=== PATIENT | male | born 1985 | race African-American/Black ===

== ENCOUNTER 2016-11-25 13:30 | Emergency (ER) | payer OTHER ==
[2016-11-25 13:47] VITALS: BP 128/72
--- NOTE | 2016-11-25 14:03 | ED Physician Documentation ---
Upper Extremity Injury - HISTORIAN Historian: patient - HPI Stated Complaint: right little finger pain Chief Complaint: Upper Extremity Injury Onset: other (4 weeks ago) Where: home Severity: moderate Duration: worse Further Comments: yes (31 year old male patient presents with right 5th digit pain, states he injury the finger 4 weeks ago and has not been able straighten the right 5th digit.) - ROS CONST: no problems CVS/RESP: none NEURO: none MS/SKIN/LYMPH: none GI/: denies: nausea, vomiting - PAST HX Past History: Rt handed Allergies/Adverse Reactions: Allergies Allergy/AdvReac Type Severity Reaction Status Date / Time No Known Allergies Allergy Verified 04/01/16 02:18 Home Medications: Ambulatory Orders Medication Instructions Recorded NK [NK] 11/25/16 - SOCIAL HX Smoking History: cigarettes - FAMILY HX Family History: denies: none - VITAL SIGNS Vital Signs: Vital Signs Temp Pulse Resp BP Pulse Ox 99.4 F 78 20 128/72 99 11/25/16 14:42 11/25/16 14:42 11/25/16 14:42 11/25/16 13:31 11/25/16 14:42 - REVIEWED ASSESSMENTS Nursing Assessment Reviewed: Yes Vitals Reviewed: Yes Progress - Progress Progress: Reviewed xray finding with patient. Encouraged follow up with orthopedics. ED Results Lab/Radiology - Radiology Radiology Impressions: Right 5th digit Clinical history: Pain Technique AP lateral oblique Findings: There is a avulsion fracture from the distal phalanx of the 5th digit at the DiP joint. The flexion deformity is present at the pip joint. No other fractures or lytic lesions are seen. Impression: Flexion deformity of the ip joint Avulsion fracture from the base of the dorsal distal phalanx of the 5th digit thumb - Orders Orders: ED Orders Category Date Time Status Finger Splint 1T Care 11/25/16 13:59 Active FINGER 2 VIEWS OR MORE [RAD] Stat Exams 11/25/16 Taken Ketorolac Tromethamine [Toradol] Med 11/25/16 14:05 Discontinued 60 mg IM NOW ONE Upper Extremity Injury Physic - Physical Exam General Appearance: mild distress Hand: non-tender, normal ROM, deformity (right 5th digit with flexion of DIP joint, patient unable to extend, C/O pain with palpation and extension. ) Wrist: normal inspection, non-tender, no evidence of injury, normal ROM Neuro/Vascular/Tendon: no vascular compromise, motor nml, sensation nml Skin: warm,dry Resp/CVS: chest non-tender, breath sounds nml, heart sounds nml, no resp. distress, lungs clear, reg. rate & rhythm Discharge Clincal Impression: Mallet finger of right hand Avulsion fracture of distal phalanx of finger Qualifiers: Encounter type: initial encounter Fracture type: closed Qualified Code(s): S62.639A - Displaced fracture of distal phalanx of unspecified finger, initial encounter for closed fracture Referrals: Primary Doctor,No [Primary Care Provider] - 2 Days Additional Instructions: Wear splint at all times for the next 6-8 weeks. May remove twice a day to shower and access skin. Splint should be worn while sleeping. Follow up with orthopedics Tylenol or ibuprofen as needed for pain. Home Medications: Ambulatory Orders NK [NK] 11/25/16 Condition: Stable Disposition: 01 HOME, SELF-CARE Decision to Admit: NO Decision Time: 14:02
[2016-11-25] MEDS ORDERED: KETOROLAC TROMETHAMINE 60 MG/2 ML VIAL IM ONE (14:05)
--- NOTE | 2016-11-25 21:21 | Diagnostic Imaging Report ---
EVELIA SPEAR (WENDY) - ER [facility] [address] [id number] Report Submission Date: Nov 25, 2016 2:11:19 PM CDT Patient Study Name: BLANE BARTON Date: Nov 25, 2016 1:38:26 PM CDT Modality Type: CR Gender: M Description: UPPER EXTREMITY : 87 Institution: [facility] Physician: EVELIA SPEAR) - ER Right 5th digit Clinical history: Pain Technique AP lateral oblique Findings: There is a avulsion fracture from the distal phalanx of the 5th digit at the DiP joint. The flexion deformity is present at the pip joint. No other fractures or lytic lesions are seen. Impression: Flexion deformity of the ip joint Avulsion fracture from the base of the dorsal distal phalanx of the 5th digit thumb Electronically signed on Nov 25, 2016 2:11:19 PM CDT by: Elmer ROLLE
== END 2016-11-25 14:32 | disposition home or self-care (01) ==
LOC: ED 13:30
DX: S62.639A Displaced fracture of distal phalanx of unspecified finger, initial encounter for closed fracture (principal); X58.XXXA Exposure to other specified factors, initial encounter; Y93.9 Activity, unspecified; Y99.9 Unspecified external cause status; M20.011 Mallet finger of right finger(s)
CPT/HCPCS: 73140; J1885; 96372; 99283

== ENCOUNTER 2017-08-24 09:57 | Emergency (ER) | payer OTHER ==
[2017-08-24 10:14] VITALS: BP 130/80
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
== END 2017-08-24 10:45 | disposition home or self-care (01) ==
LOC: ED 09:57
DX: M79.602 Pain in left arm (principal)
CPT/HCPCS: 99282

== ENCOUNTER 2018-04-19 13:38 | Emergency (ER) | payer OTHER ==
[2018-04-19 13:53] VITALS: BP 130/77
--- NOTE | 2018-04-19 14:01 | ED Physician Documentation ---
Sore Throat/Dental Pain - HISTORIAN Historian: patient - HPI Stated Complaint: Dental pain Chief Complaint: Dental Pain Additional Information: lt lower post dendtal painw/surroundin g hteazshd-thadnrwf-kqaqhlozwhyhq tenderness Onset: days ago (3 d progressive) Context: Abscess, Dental Caries, Other (pt has several gold teeth) Associated Symptoms: denies: fever, chills, sore throat Worsened By: heat, cold, nothing - ROS CONST: no problems. denies: recent illness CVS/RESP: none GI/: denies: problems urinating, nausea, vomiting NEURO/PSYCH: none - PAST HX Past History: none Allergies/Adverse Reactions: Allergies Allergy/AdvReac Type Severity Reaction Status Date / Time No Known Allergies Allergy Verified 04/19/18 13:53 Home Medications: Ambulatory Orders Medication Instructions Recorded NK 04/19/18 - SOCIAL HX Smoking History: cigarettes Alcohol Use: none Drug Use: none - FAMILY HX Family History: No - VITAL SIGNS Vital Signs: Vital Signs Temp Pulse Resp BP Pulse Ox 101 H 15 130/77 99 04/19/18 13:45 04/19/18 13:45 04/19/18 13:45 04/19/18 13:45 - REVIEWED ASSESSMENTS Nursing Assessment Reviewed: Yes Vitals Reviewed: Yes Dental Pain Physical Exam - EXAM General Appearance: mild distress, moderate distress Head/Neck: head nml inspection, maxillary swelling (L) Eyes: eyes nml inspection Mouth/Throat: lips nml, pharynx nml, voice nml. No: gums nml Ear/Nose: nml inspection Respiratory: no resp. distress, breath sounds nml CVS: reg. rate & rhythm, heart sounds nml Abdomen: soft, non-tender Extremities: non-tender, nml ROM Skin: warm/dry, normal color. No: cyanosis, diaphoresis, jaundice Neuro/Psych: none Discharge Clincal Impression: dental caries sepsis Referrals: Primary Doctor,No [Primary Care Provider] - 2 Days Comments: meds see dentist soon-recently [facility] Condition: Good Disposition: HOME, SELF-CARE Decision to Admit: NO Decision Time: 14:05
== END 2018-04-19 14:02 | disposition home or self-care (01) ==
LOC: ED 13:38
DX: K02.9 Dental caries, unspecified (principal); K04.7 Periapical abscess without sinus; Z72.0 Tobacco use
CPT/HCPCS: 99281

== ENCOUNTER 2018-05-19 09:10 | Emergency (ER) | payer SELFPAY ==
[2018-05-19 09:22] VITALS: BP 114/63
[2018-05-19] MEDS ORDERED: KETOROLAC TROMETHAMINE 60 MG/2 ML VIAL IM ONE (09:23)
--- NOTE | 2018-05-19 09:31 | ED Physician Documentation ---
Sore Throat/Dental Pain - HISTORIAN Historian: patient - HPI Stated Complaint: Dental pain Chief Complaint: Dental Pain Further Comments: yes (33 year old male patient presents with dental pain for the past week. Has not seen the dentist, has not used any OTC medications [employer].) - ROS CONST: no problems CVS/RESP: none GI/: denies: nausea, vomiting MS/SKIN/LYMPH: denies: muscle aches, rash, leg swelling, ankle swelling, other NEURO/PSYCH: none - PAST HX Past History: none Other History: none Allergies/Adverse Reactions: Allergies Allergy/AdvReac Type Severity Reaction Status Date / Time No Known Allergies Allergy Verified 05/19/18 09:22 Home Medications: Ambulatory Orders Medication Instructions Recorded Ibuprofen 800 mg PO TID PRN #20 tablet 05/19/18 Penicillin V Potassium [Pen V K] 500 mg PO TID #30 tablet 05/19/18 - SOCIAL HX Smoking History: non-smoker - FAMILY HX Family History: No - VITAL SIGNS Vital Signs: Vital Signs Temp Pulse Resp BP Pulse Ox 86 15 114/63 98 05/19/18 09:16 05/19/18 09:16 05/19/18 09:16 05/19/18 09:16 - REVIEWED ASSESSMENTS Nursing Assessment Reviewed: Yes Vitals Reviewed: Yes Progress - Progress Progress: Offered dental block - patient refused Offered pain injections - patient refused toradol. ED Results Lab/Radiology - Orders Orders: ED Orders Category Date Time Status Ketorolac Tromethamine [Toradol] Med 05/19/18 09:23 Once 60 mg IM NOW ONE Dental Pain Physical Exam - EXAM General Appearance: no acute distress, alert Head/Neck: other (Gold caps noted on all front teeth 7, 8, 9, 10; 26, 25, 24, 23) Mouth/Throat: lips nml, gums nml, pharynx nml, voice nml, no drooling, no air way problems, no thrush, membranes nml, gum swelling around teeth (#19 - dental caries noted;) Respiratory: no resp. distress CVS: reg. rate & rhythm, heart sounds nml Neuro/Psych: none Discharge Clincal Impression: Dental caries Prescriptions: Ibuprofen 800 mg PO TID PRN #20 tablet PRN Reason: Pain Penicillin V Potassium [Pen V K] 500 mg PO TID #30 tablet Referrals: Primary Doctor,No [Primary Care Provider] - 2 Days Additional Instructions: Tylenol 650-1000mg every 4 hours as needed for pain, limit your dose to 4G in 24 hours. Over the counter DenTek - follow package directions. Over the counter Orajel as needed for pain See your dentist as soon as possible supervisor carding your antibiotic today. Condition: Stable Disposition: 01 HOME, SELF-CARE Decision to Admit: NO Decision Time: 09:30
== END 2018-05-19 09:38 | disposition home or self-care (01) ==
LOC: ED 09:10
DX: K02.9 Dental caries, unspecified (principal)
CPT/HCPCS: 99282